=== PATIENT | male | born 1985 | race Hispanic/Latino ===

== ENCOUNTER 2023-03-15 12:53 | Emergency (ER) | payer OTHER ==
[~2023-03-15] VITALS: Ht 182.9 cm; Wt 113.4 kg
[2023-03-15 13:08] VITALS: O2SAT 100
[2023-03-15] MEDS ORDERED: ELIQUIS5 MG PO (13:19)
== END 2023-03-15 13:24 | disposition home or self-care (01) ==
LOC: ER 13:10
DX: I82.492 Acute embolism and thrombosis of other specified deep vein of left lower extremity (principal); W20.8XXA Other cause of strike by thrown, projected or falling object, initial encounter; Y92.89 Other specified places as the place of occurrence of the external cause
CPT/HCPCS: 99283

== ENCOUNTER → 2023-03-16 | Outpatient (REF) | payer OTHER ==
[~2023-03-16] MED LIST: ELIQUIS5 MG PO
== END ==
LOC: RAD 03-15 11:41
PROVIDERS: ATTEND Family Medicine
DX: S86.812D Strain of other muscle(s) and tendon(s) at lower leg level, left leg, subsequent encounter (principal)
CPT/HCPCS: 93971